=== PATIENT | male | born 1995 | race Caucasian/White ===

== ENCOUNTER 2018-05-18 09:29 | Day surgery (SDC) | payer BC ==
[2018-05-16 13:21] VITALS: BMI 21.6
[2018-05-18] MEDS ORDERED: LACTATED RINGERS 1,000 ML IV SCH (10:34)
[2018-05-18 10:49] VITALS: RESP 16; TEMP 98.1
[2018-05-18] MEDS ORDERED: PROPOFOL 10 MG/ML 20 ML VIAL IV ONE (11:20)
--- NOTE | 2018-05-18 11:39 | P.PCN ---
Date of Procedure: 05/18/18 Procedure(s) Performed: BRIEF HISTORY: Patient is a 23-year-old pleasant white male, scheduled for an elective colonoscopy as a part of surveillance of long-standing history of Crohn 's colitis diagnosed in 2005. He was diagnosed at [facility] with Crohn's ileocolitis and was on Remicade from [id number]. Presently he is off all medications for 5 years. He scheduled for surveillance colonoscopy today. PROCEDURE PERFORMED: Colonoscopy with random biopsies. PREOPERATIVE DIAGNOSIS: Long standing history of Crohn's colitis diagnosed in 2005. IV sedation per Anesthesia. PROCEDURE: After informed consent was obtained, the patient, was brought into the endoscopy unit. IV sedation was administered by Anesthesia under continuous monitoring. Digital rectal examination was normal. Initially the Olympus CF- 160 flexible video colonoscope was then inserted in the rectum, gradually advanced into the cecum without any difficulty. Careful examination was performed as the scope was gradually being withdrawn. Ileocecal valve and the appendiceal orifice were visualized and appeared normal. Prep was excellent. Terminal ileum was intubated and 20 cm visualized and appeared normal. Biopsies were done from this area. Mucosa of the cecum, ascending colon, transverse colon, descending colon, sigmoid colon, and rectum appeared normal. Retroflexion was performed in the rectum and no lesions were seen. Random biopsies were done from different parts of the colon. The patient tolerated the procedure well. IMPRESSION: Normal-appearing colon from rectum to cecum with no evidence of colorectal neoplasia or active colitis . RECOMMENDATIONS: Findings of this examination were discussed with the patient as his family. He was advised to follow with the biopsy results. The biopsies do not show any evidence of dysplasia, he can have a repeat colonoscopy in 2-3 years.
[2018-05-18 12:08] VITALS: BP 127/86; PULSE 61
== END 2018-05-18 12:25 | disposition home or self-care (01) ==
LOC: ORWHC2ENDO 09:29
PROVIDERS: ATTEND Internal Medicine Gastroenterology
DX: K50.90 Crohn's disease, unspecified, without complications (principal); F17.200 Nicotine dependence, unspecified, uncomplicated; Z79.899 Other long term (current) drug therapy
CPT/HCPCS: 88305; 45380; J2704